=== PATIENT | male | born 2000 | race African-American/Black ===

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

== ENCOUNTER 2021-07-26 10:53 | Emergency (ER) | payer OTHER ==
[2021-07-26] MEDS ORDERED: Ondansetron ODT 4 MG TAB ONE (11:13)
== END 2021-07-26 11:25 | disposition home or self-care (01) ==
LOC: MADERS 10:53
DX: K52.9 Noninfective gastroenteritis and colitis, unspecified (principal); E11.9 Type 2 diabetes mellitus without complications; Z79.4 Long term (current) use of insulin
CPT/HCPCS: 99283; Q0162